=== PATIENT | male | born 1965 | race Caucasian/White ===

== ENCOUNTER 2019-12-20 10:23 | Emergency (ER) | payer BC ==
[2019-12-20] MEDS ORDERED: Ondansetron 4 MG Tab.DIS PO ONE (10:53)
[2019-12-20] MEDS ORDERED: Ketorolac 60 MG/2 ML SDV IM ONE (10:53)
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
[2019-12-20] MEDS ORDERED: Magnesium Hydroxide 400 MG/5 ML Susp 30 ML Cup ONE (12:02)
[2019-12-20] MEDS ORDERED: Magnesium Hydroxide 400 MG/5 ML Susp 30 ML Cup PO ONE (12:15)
--- NOTE | 2019-12-22 07:33 | CR ---
DATE OF SERVICE: 12/20/19 CLINICAL DATA: Lower abdominal pain. SUPINE AND UPRIGHT ABDOMEN: There is a moderate amount of stool present in the ascending and transverse colon. No evidence of obstruction or ileus. No free air. There are surgical clips overlying the lower pelvis. There is a calcification in the right pelvis, which is most likely vascular. Minimal osteoarthritic changes of both hip joints. [id number] MTDD
== END 2019-12-20 13:00 | disposition home or self-care (01) ==
LOC: LB.ED 10:23
DX: R10.30 Lower abdominal pain, unspecified (principal)
CPT/HCPCS: 36415; 74019; 80053; 81001; 82150; 83605; 84484; 85025; 86140; 93005; 96372; 99283; 99284-25; A9270-GY; J1885

== ENCOUNTER 2019-12-21 20:20 | Emergency (ER) | payer BC ==
[2019-12-21] MEDS ORDERED: Bisacodyl 10 MG Supp RECTAL ONE (20:26)
[2019-12-21] MEDS ORDERED: Ketorolac 60 MG/2 ML SDV IM ONE (20:30)
--- NOTE | 2019-12-21 20:36 | EDM.PDOC ---
ED HPI GENERAL MEDICAL PROBLEM - General Chief Complaint: Abdominal Pain Stated Complaint: ABDOMINAL PAIN Time Seen by Provider: 12/21/19 20:30 Source of Information: Reports: Patient History Limitations: Reports: No Limitations - History of Present Illness INITIAL COMMENTS - FREE TEXT/NARRATIVE: Baldo is back with abdominal pain. He states that he has not had an adequate bowel movement. His pain was definitely more severe yesterday. He describes a steady dull ache. This is entirely left-sided. No hematuria or urinary change. No nausea. He denies a sensation of colic. He wants empiric treatment , and is even hesitant to have his UA repeated. He really feels constipated more than anything, and wishes to treat this and see how he feels thereafter. He is living in [place]. No exertional issues, fever, or significant malaise. Denies GERD sx's. Requesting toradol, given excellent relief n the past. Abdomen Pain Score (Numeric/FACES): 0 - Related Data Allergies Allergy/AdvReac Type Severity Reaction Status Date / Time No Known Allergies Allergy Verified 12/20/19 10:45 Past Medical History - Past Health History Medical/Surgical History: Denies Medical/Surgical History Social & Family History - Family History Family Medical History: Noncontributory - Caffeine Use Caffeine Use: Reports: Tea ED ROS GENERAL - Review of Systems Review Of Systems: Comprehensive ROS is negative, except as noted in HPI. ED EXAM, GI/ABD - Physical Exam Exam: See Below Exam Limited By: No Limitations General Appearance: Alert, WD/WN, No Apparent Distress Eyes: Bilateral: Normal Appearance, EOMI Ears: Normal External Exam Nose: Normal Inspection Throat/Mouth: Normal Inspection, Normal Lips Head: Atraumatic, Normocephalic Neck: Normal Inspection, Full Range of Motion Respiratory/Chest: No Respiratory Distress, Lungs Clear Cardiovascular: Regular Rate, Rhythm, No Gallop, No Murmur, No Rub GI/Abdominal Exam: Soft, Non-Tender, Distended (slightly ), Abnormal Bowel Sounds (hypoactive bowel sounds). No: Guarding, Rebound, Tender, Mass, Hepatomegaly Rectal (Males) Exam: Deferred Back Exam: Normal Inspection, Full Range of Motion. No: CVA Tenderness (R), CVA Tenderness (L) Extremities: Normal Inspection, Normal Capillary Refill Neurological: Alert, Oriented, Normal Cognition, Normal Gait, No Motor/Sensory Deficits Psychiatric: Normal Affect, Normal Mood Skin Exam: Warm, Dry Course - Vital Signs Text/Narrative:: Explained plan toproceed with CT and recheck UA to r/o RBC's. Baldo declines, in favor of medication trial. Will continue with serial exam. Explained a stone may not appear on Xray and CT could be valuable in ruling this out. He verbalizes understanding, but wishes for a step up in the bowel routine first. Last Recorded V/S: Last Vital Signs Temp 98.2 F 12/21/19 20:25 Pulse 71 12/21/19 20:25 Resp 18 12/21/19 20:25 BP 142/88 H 12/21/19 20:25 Pulse Ox 100 12/21/19 20:25 - Orders/Labs/Meds Orders: Active Orders 24 hr Category Date Time Status UA RFX AMOR AND CULT IF INDIC [URIN] Stat Lab 12/21/19 20:25 Ordered Meds: Medications Discontinued Medications Generic Name Dose Route Start Last Admin Trade Name Kathleen PRN Reason Stop Dose Admin Bisacodyl 10 mg 12/21/19 20:26 12/21/19 20:44 Dulcolax RECTAL 12/21/19 20:27 10 mg ONETIME ONE Administration Ketorolac Tromethamine 60 mg 12/21/19 20:30 Toradol IM 12/21/19 20:31 ONETIME ONE Senna 17.2 mg 12/22/19 20:28 12/21/19 20:43 Senna PO 12/22/19 20:29 17.2 mg ONETIME ONE Administration Senna Confirm 12/21/19 20:42 Senna Administered 12/21/19 20:43 Dose 17.2 mg .ROUTE .STK-MED ONE - Re-Assessments/Exams Free Text/Narrative Re-Assessment/Exam: 12/21/19 21:51 Discussed treatment options and differential explained reasons to return He really does not want imaging repeat exam reveals no pain or tenderness whatsoever Departure - Departure Time of Disposition: 21:30 Disposition: Home, Self-Care 01 Clinical Impression: Abdominal pain Qualifiers: Abdominal location: unspecified location Qualified Code(s): R10.9 - Unspecified abdominal pain - Discharge Information Instructions: Constipation, Adult, [id number] Referrals: PCP,None [Primary Care Provider] - Forms: ED Department Discharge, ED Return to Work/School Form Sepsis Event Note - Focused Exam Vital Signs: Vital Signs Temp Pulse Resp BP Pulse Ox 12/21/19 20:25 98.2 F 71 18 142/88 H 100 Date Exam was Performed: 12/21/19 Time Exam was Performed: 21:50 - My Orders Last 24 Hours: My Active Orders 12/21/19 20:25 UA RFX AMOR AND CULT IF INDIC [URIN] Stat - Assessment/Plan Last 24 Hours: My Active Orders 12/21/19 20:25 UA RFX AMOR AND CULT IF INDIC [URIN] Stat
[2019-12-21] MEDS ORDERED: Sennosides 8.6 MG Tab ONE (20:42)
[2019-12-22] MEDS ORDERED: Sennosides 8.6 MG Tab PO ONE (20:28)
== END 2019-12-21 21:25 | disposition home or self-care (01) ==
LOC: LB.ED 20:20
DX: R10.9 Unspecified abdominal pain (principal)
CPT/HCPCS: 81001; 99283; 99284; A9270-GY